=== PATIENT | female | born 1995 | race Asian ===

== ENCOUNTER 2017-07-25 01:20 | Emergency (ER) | payer OTHER ==
[~2017-07-25] VITALS: Ht 165.1 cm; Wt 44.0 kg
[2017-07-25 01:26] VITALS: TEMP 36.7; Ht 165.1 cm; Wt 44.0 kg
[2017-07-25] MEDS ORDERED: XYLOCAINE 1%/SOD BICARB 20 ML VIAL INFIL ONE (01:45)
[2017-07-25 02:29] VITALS: BP 108/61; PULSE 72; O2SAT 98
--- NOTE | 2017-07-25 05:37 | EMERGENCY ROOM VISIT NOTE ---
ED Visit Note First contact with patient: 01:31 CHIEF COMPLAINT: Left foot laceration HISTORY OF PRESENT ILLNESS: This 21 year old female patient presents to the emergency department after cutting the inside of her left foot on a piece of glass tonight about 1 hour ago. The bleeding has stopped. Denies weakness or numbness of the foot. The patient rates the pain as dull and 4/10. The patient denies any other injuries. The patient's Tetanus shot is reportedly up to date. REVIEW OF SYSTEMS: A 6 system review of systems was completed with positives and pertinent negatives listed in the HPI. ALLERGIES: Seafood MEDICATIONS: No chronic medication PMH: Otherwise healthy SOCIAL HISTORY: Student who lives locally PHYSICAL EXAM: Vital Signs: Reviewed Nurse's notes, vital signs stable. GENERAL : female, in no acute distress, well-developed, well-nourished. SKIN: There is a U shaped 8 cm long laceration on the medial aspect of the left foot. The edges gape apart with traction. There is no foreign material in the wound and it looks clean. There is no significant bleeding. No deep structures such as tendons, bones, or significant blood vessels are seen in the base of the wound. Normal strength and movement of the foot and ankle. Capillary refill less than 2 seconds. Normal sensation to light and sharp touch. EMERGENCY DEPARTMENT COURSE: I examined the patient. Verbal consent was obtained to perform the procedure. Using sterile technique the wound was cleansed with Betadine. The area was sterilely draped. 6 ml of 1% buffered lidocaine was used to anesthetize the laceration on the left foot. Once the patient was anesthetized, the wound was copiously irrigated under pressure with sterile saline. The wound was explored and was as described above. The laceration was repaired using 11 simple interrupted 4-0 nylon sutures with the wound edges being well approximated. The patient tolerated the procedure well. Hemostasis was achieved. The area was cleaned with sterile saline and dressed with bacitracin ointment and bandage. The patient was discharged home in good condition. Current/Historical Medications No Active Prescriptions or Reported Meds Allergies Uncoded Allergies: SEAFOOD (Allergy, Intermediate, "ITCHY SKIN", 07/25/17) Vital Signs Date Time Temp Pulse Resp B/P (MAP) Pulse Ox O2 Delivery O2 Flow Rate FiO2 07/25/17 02:29 72 18 108/61 98 07/25/17 01:26 36.7 89 18 105/56 97 Room Air Departure Information Impression Primary Impression: Laceration of foot Dispostion Home / Self-Care Condition GOOD Prescriptions No Active Prescriptions or Reported Meds Referrals No Doctor, Assigned [facility] (PCP) Forms HOME CARE DOCUMENTATION FORM, IMPORTANT VISIT INFORMATION Patient Instructions My [facility] Additional Instructions Keep wound clean and dry. Do not allow any crusting or dried blood to accumulate on sutures. If this occurs, use a mild soap/water on a Q-tip to clean the wound. Do not use Peroxide to clean the wound as this can delay healing Use an antibiotic ointment like Bacitracin for 3-4 days, then let wound dry. You may bathe and shower as normal, but DO NOT SOAK the wound. Suture removal in about 12-14 days with S, your Family Doctor, or in the ER. Return sooner for any signs of infection, increasing redness, swelling, or drainage.
== END 2017-07-25 02:30 | disposition home or self-care (01) ==
LOC: C.EDB 01:22
DX: S91.312A Laceration without foreign body, left foot, initial encounter (principal); W25.XXXA Contact with sharp glass, initial encounter; Z91.013 Allergy to seafood